=== PATIENT | male | born 1995 | race Caucasian/White ===

== ENCOUNTER 2021-05-19 11:53 | Emergency (ER) | payer OTHER, SELFPAY ==
[2021-05-19 12:05] VITALS: BP 131/80; PULSE 78; RESP 20; TEMP 36.7; O2SAT 97
--- NOTE | 2021-05-19 12:40 | ED_ITS ---
HPI - URI/Sore Throat General Chief Complaint: Upper Respiratory Infection Stated Complaint: Sore Throat Limitations: no limitations History of Present Illness HPI Narrative: The patient, who is a smoker/nondrinker, presents with complaints of URI and sore throat. Patient states he recently finished [facility] early in the month for dental complaints. He now has a shorter half week history of sore throat associated with white spotting. No fever measured, earache, rash, vomiting/diarrhea; he had Covid in the last year-no loss of taste/smell, CP, cough, S OB, calf pain/edema. Patient requests work note Related Data Home Medications Medication Instructions Recorded Confirmed tramadol 50 mg PO DIRECTED 05/19/21 05/19/21 Allergies Allergy/AdvReac Type Severity Reaction Status Date / Time No Known Allergies Allergy Verified 05/19/21 12:07 Review of Systems Review of Systems: Narrative: General/Constitutional: No weight loss,fever Eyes: N0: Redness,discharge Ears/Nose/Throat: No: Epistaxis,ear discharge Respiratory: Denies: Hemoptysis Gastrointestinal: No Vomiting, Bleeding-rectal Skin: No Lumps, eruption Neurologic: No Focal Weakness,Sz Hematologic: Denies: Petechiae/Purpura Psychiatric: No: Suicida ideationl PMFSH Comments At time of signature, agree with nursing past medical, surgical, social and family history. There is no relevant family history pertinent to the presenting complaint Exam Narrative: Exam Narrative: General Appearance: Overweight/ Well nourished, Conjunctiva clear Ears: Auditory canal normal, TM normal Nose: Rhinorrhea, Mucousal erythema Mouth/Throat: MM moist, Uvula midline, Pharyngeal erythema Supple, No adenopathy Respiratory: No respiratory distress, Breath sounds equal, Clear to auscultation Musculoskeletal: Non tender, Normal strength, Warm, Dry Neurological: A&O x3, nll affect Course Vital Signs Vital signs: Vital Signs Temperature 98.1 F 05/19/21 12:05 Pulse Rate 78 05/19/21 12:05 Respiratory Rate 20 05/19/21 12:05 Blood Pressure 131/80 05/19/21 12:05 Pulse Oximetry 97 05/19/21 12:05 Temperature 98.1 F 05/19/21 12:05 Pulse Rate 78 05/19/21 12:05 Respiratory Rate 20 05/19/21 12:05 Blood Pressure 131/80 05/19/21 12:05 Pulse Oximetry 97 05/19/21 12:05 Discharge Plan Discharge Clinical Impression: Upper respiratory infection Qualifiers: URI type: unspecified URI Qualified Code(s): J06.9 - Acute upper respiratory infection, unspecified Patient Disposition: Home, Self-Care Condition: Stable Instructions: Antibiotic Form Prescriptions: New azithromycin 250 mg tablet See Rx Instructions .ROUTE .COMPLEX Qty: 6 RF: 0 lidocaine HCl [Lidocaine Viscous] 2 % solution 5 ml MUCOUS MEM QID PRN (Reason: pain) Qty: 100 RF: 0 No Action tramadol 50 mg tablet 50 mg PO DIRECTED RF: 0 Other Ambulatory Orders: SARS-CoV-2 RNA, Qual RT-PCR (Routine) Location: Determined by Patient Ordered By: Clint Lester Follow-up/Referrals: PHYSICIAN,[employer] [facility]ISTANT [Primary Care Provider] - Stand Alone Forms: Work/School Release IP
== END 2021-05-19 12:44 | disposition home or self-care (01) ==
PROVIDERS: Emergency Provider Emergency Medicine
DX: J06.9 Acute upper respiratory infection, unspecified (principal); Z20.822 Contact with and (suspected) exposure to COVID-19
CPT/HCPCS: 99213; G0463